=== PATIENT | female | born 1990 | race Caucasian/White ===

== ENCOUNTER 2016-10-15 23:39 | Emergency (ER) | payer OTHER ==
[~2016-10-15] VITALS: Ht 154.9 cm; Wt 49.9 kg
--- NOTE | ~2016-10-15 | CT4 ---
[facility] A Service of [facility] RADIOLOGY TEXT RESULTS PATIENT: MORENO MCNAIR V LOCATION: SED : [birth year] UNIT #: [id number] AGE: [address]: Flores Woody SEX: F ORDER DR: [id number] [place] [id number] E MR#: [id number] Acc #: [id number] NAME: MORENO MCNAIR V. : 1990 SEX: F STUDY DATE/TIME: 10/16/2016 0:51 UNIT: SED ROOM: STUDY DESCRIPTION: CT Abd and Pelv Wo Cont Attending Physician: Flores Woody Pa-C Ordering Physician: Flores Woody Pa-C Primary Care Physician: Meagan Primary Care Physician MEDICAL IMAGING REPORT This report is preliminary unless electronic signature is present. EXAM CT abdomen and pelvis, noncontrast, 10/16/2016. HISTORY 26-year-old female in the ED complaining of a 3-day history of left lower quadrant pain and left flank pain 10 days postop vaginal delivery. TECHNIQUE CT examination of the abdomen and pelvis was performed without oral or IV contrast using kidney stone protocol as requested. This CT exam was performed with one or more of the following radiation dose reduction techniques: automatic exposure control, adjustment of mA and/or kV according to patient size, and iterative reconstruction. FINDINGS Enlarged uterus in the midline pelvis. The endometrial cavity is distended with heterogeneous high attenuation material with some speckled peripheral calcification measuring about 6 cm in length and up to 4 cm in thickness. Endometrial hematoma or retained products of conception is likely in this clinical setting. Referral for assessment by the patient's supervisor wound is recommended. There is no evidence of upper urinary tract obstruction on the right or left. There is no visible nephrolithiasis. Liver, pancreas, and spleen are unremarkable. Large volume stool throughout portions of the colon. Small bowel and colon are otherwise unremarkable. The appendix is normal. Nondistended urinary bladder. No inguinal hernia or abdominal wall hernia. Lung base images show no active disease. [facility] A Service of [facility] RADIOLOGY TEXT RESULTS PATIENT: MORENO MCNAIR V LOCATION: [facility] [place] : [birth year] UNIT #: [id number] AGE: [address]: Flores Woody SEX: F ORDER DR: IMPRESSION 1. Heterogeneous, high attenuation, partially calcified material distending the endometrial cavity of an enlarged uterus as detailed above. Retained hematoma or products of conception is likely in this clinical setting. 2. There is no upper urinary tract obstruction. No visible nephrolithiasis. 3. Remainder of the exam is negative. Dictated by... Osvaldo Camargo M.D. THIS IS AN ELECTRONICALLY VERIFIED REPORT Osvaldo Camargo M.D. at 10/16/2016 9:57 PM RAOULW/jon TD: 10/16/2016 10:22 JOB #: [id number] MEDICAL IMAGING REPORT Page 1 of 1
[~2016-10-15 23:39] MED LIST: ADVAIR 1001 DISK W/D PO; ALPRAZOLAM PO; AMOXICILLIN PO; AMOXIL500 M1 PO; BACTRIM DS TABL1 TA1 PO; BACTRIM DS TABL1 TAB PO; BACTROBAN15 GM TOP; DARVOCET-N 1001 TAB PO; DELSYM30 MG/5 ML PO; EC-NAPROSYN500 MG PO; FLAGYL PO; FLEXERIL PO; IBUPROFEN PO; KEFLEX PO; KEFLEX500 MG PO; KETOPROFEN PO; LORATADINE PO; MACROBID100 MG PO; MEDROL PO; NAPROXEN PO; PRENATAL1 TA1 PO; TESSALON200 MG PO; VICODIN 5/1 TAB 5/50 PO; ZITHROMAX500 MG PO
[2016-10-15] MEDS ORDERED: SUBOXONE 8 MG-1 EAC1 SL (23:48)
[2016-10-16 00:20] LABS: URINE SOURCE CLEAN CATCH
[2016-10-16 00:23] LABS: URINE APPEARANCE CLEAR; URINE BLOOD 3+ (NEG); URINE COLOR YELLOW; URINE GLUCOSE NEG (NORM); URINE KETONE TRACE (NEG); URINE LEUKOCYTE ESTERASE 1+ (NEG); URINE NITRATE NEG (NEG); URINE PROTEIN 1+ (NEG); URINE SPECIFIC GRAVITY 1.025 (1.003-1.035)
[2016-10-16 00:24] LABS: BASOPHIL% 0.1 % (0-2.5); EOSINOPHIL# 0.1 X10e3 (0-0.7); HEMATOCRIT 33.8 % (35.0-45.0); HEMOGLOBIN 11.5 gm/dL (12.0-16.0); LYMPHOCYTE# 1.1 X10e3 (1.0-3.5); LYMPHOCYTE% 8.1 % (17.0-45.0); MEAN CELL VOLUME 91.2 FL (83-96); MEAN CORPUSCULAR HEMOGLOBIN 30.9 PG (28-34); MEAN CORPUSCULAR HGB CONC 33.9 g/dL (30-36); MEAN PLATELET VOLUME 8.9 FL (6.5-11.5); MONOCYTE# 0.7 X10e3 (0-1.0); MONOCYTE% 4.8 % (3.0-12.0); PLATELET COUNT 214 X10e3 (140-420); RED BLOOD COUNT 3.71 X10e (3.90-5.30); RED CELL DISTRIBUTION WIDTH 13.7 % (11.0-15.5)
[2016-10-16 00:26] LABS: DIFF IND NO
[2016-10-16 00:33] LABS: MICRO INDICATED? YES; URINE BILIRUBIN NEG (NEG)
[2016-10-16 00:34] LABS: CULTURE INDICATED? YES; URINE BACTERIA NEG (NEG); URINE SQUAMOUS EPITHELIAL CELL OCCAS /[HPF]; URINE TRANSITIONAL EPI CELLS FEW /[HPF]; URINE WBC 25-50 /[HPF] (0-5)
[2016-10-16 00:35] LABS: URINE HYALINE CAST 0-2 /[HPF]; URINE MUCUS PRESENT
[2016-10-16 00:39] LABS: ALBUMIN SERUM 3.2 g/dL (3.5-5.0); BILIRUBIN, DIRECT 0.2 mg/dL (0.0-0.2); BILIRUBIN,INDIRECT 0.8 mg/dL (0.0-0.9); CALCIUM SERUM 8.2 mg/dL (8.4-10.2); CREATININE SERUM 0.7 mg/dL (0.6-1.4); GLOM FILT RATE Estimated 119.6 mL/min (>60); PROTEIN TOTAL SERUM 7.2 g/dL (6.0-8.3)
[2016-10-21 07:50] LABS: CHLAMYDIA TRACH Not Detected (Not Detected); N GONOR Not Detected (Not Detected)
== END 2016-10-16 04:16 | disposition hospice, home (50) ==
LOC: SED 23:39
PROVIDERS: Physician Assistant
DX: O72.2 Delayed and secondary postpartum hemorrhage (principal); N71.9 Inflammatory disease of uterus, unspecified; F41.9 Anxiety disorder, unspecified; F43.10 Post-traumatic stress disorder, unspecified; F17.200 Nicotine dependence, unspecified, uncomplicated
CPT/HCPCS: 74176; 80048; 80076; 81003; 83690; 85025; 87086; 87210; 87491; 87591; 87808; 87905; 96360; 99285